=== PATIENT | male | born 2000 | race African-American/Black ===

== ENCOUNTER 2019-10-22 12:42 | Emergency (ER) | payer OTHER ==
[~2019-10-22] VITALS: Ht 182.9 cm; Wt 87.7 kg
[2019-10-22] MEDS ORDERED: ALB (12:49)
--- NOTE | 2019-10-22 13:37 | REPVR ---
PROCEDURE INFORMATION: Exam: CT Head Without Contrast Exam date and time: 10/22/2019 1:28 PM Age: 18 years old Clinical indication: Injury or trauma; Fall; Initial encounter; Blunt trauma (contusions or hematomas); Additional info: Fall injury, dizziness TECHNIQUE: Imaging protocol: Computed tomography of the head without contrast. Radiation optimization: All CT scans at this facility use at least one of these dose optimization techniques: automated exposure control; mA and/or kV adjustment per patient size (includes targeted exams where dose is matched to clinical indication); or iterative reconstruction. COMPARISON: No relevant prior studies available. FINDINGS: Brain: No acute intracranial hemorrhage, cerebral edema, or midline shift. Ventricles: No hydrocephalus. Bones/joints: No acute fracture. Sinuses: No acute sinusitis. Mastoid air cells: Visualized mastoid air cells are well aerated. Soft tissues: Unremarkable. IMPRESSION: No acute intracranial abnormality. Electronically signed by: Jacob Page On 10/22/2019 13:37:28 PM
[2019-10-22 14:01] VITALS: BP 131/68
== END 2019-10-22 14:02 | disposition home or self-care (01) ==
LOC: M ED 12:42
DX: S06.0X0A Concussion without loss of consciousness, initial encounter (principal); W07.XXXA Fall from chair, initial encounter; Y92.018 Other place in single-family (private) house as the place of occurrence of the external cause; Y93.9 Activity, unspecified; Y99.9 Unspecified external cause status; Z91.81 History of falling

== ENCOUNTER 2019-10-25 17:28 | Emergency (ER) | payer OTHER ==
[~2019-10-25] VITALS: Ht 182.9 cm; Wt 93.6 kg
[~2019-10-25 17:28] MED LIST: ALB
[2019-10-25] MEDS ORDERED: ONDANSETRON 4 MG ORAL DISINTEGRATING TAB PO ONE (18:00)
--- NOTE | 2019-10-25 18:39 | REPVR ---
PROCEDURE INFORMATION: Exam: CT Head Without Contrast Exam date and time: 10/25/2019 6:21 PM Age: 18 years old Clinical indication: Injury or trauma; Injury history: Head injury; Initial encounter; Blunt trauma (contusions or hematomas); Additional info: Head injury, increase in n/v/dizziness today TECHNIQUE: Imaging protocol: Computed tomography of the head without contrast. Radiation optimization: All CT scans at this facility use at least one of these dose optimization techniques: automated exposure control; mA and/or kV adjustment per patient size (includes targeted exams where dose is matched to clinical indication); or iterative reconstruction. COMPARISON: CT Head without contrast 10/22/2019 1:24 PM FINDINGS: Brain: No CT evidence of acute cortical infarct. No mass effect. No edema. There is no evidence of intracranial hemorrhage. Ventricles: The ventricular system is midline and appropriate in size. No hydrocephalus. Bones/joints: There is no evidence of acute fracture. Sinuses: No fluid levels. Mastoid air cells: Visualized mastoid air cells are free of acute inflammatory change. Orbits: The included orbital structures are unremarkable. Soft tissues: No large soft tissue hematoma. Please correlate clinically. IMPRESSION: No acute intracranial abnormality. Electronically signed by: Julio Ackerman On 10/25/2019 18:38:47 PM
[2019-10-25] MEDS ORDERED: IBUPROFEN 800 MG TAB PO ONE (18:45)
[2019-10-25] MEDS ORDERED: ONDA4TAB6 PO (18:46)
[2019-10-25 19:00] VITALS: BP 138/74
== END 2019-10-25 19:01 | disposition home or self-care (01) ==
LOC: M ED 17:28
DX: R11.2 Nausea with vomiting, unspecified (principal)
CPT/HCPCS: 70450; 99283; Q0162

== ENCOUNTER 2019-10-31 12:13 | Emergency (ER) | payer OTHER ==
[~2019-10-31] VITALS: Ht 182.9 cm; Wt 93.6 kg
[~2019-10-31 12:13] MED LIST changes: +ONDA4TAB6 PO
[2019-10-31] MEDS ORDERED: VENTAER INH (12:28)
[2019-10-31] MEDS ORDERED: KETOROLAC TROMETHAMINE 10 MG TAB PO ONE (13:30)
[2019-10-31] MEDS ORDERED: ONDANSETRON 4 MG ORAL DISINTEGRATING TAB PO ONE (13:30)
[2019-10-31 14:27] VITALS: BP 143/79
== END 2019-10-31 14:30 | disposition home or self-care (01) ==
LOC: M ED 12:13
DX: F07.81 Postconcussional syndrome (principal); R51 Headache; Z91.81 History of falling
CPT/HCPCS: 99283; Q0162

== ENCOUNTER 2020-02-29 01:18 | Emergency (ER) | payer OTHER ==
[~2020-02-29] VITALS: Ht 185.4 cm; Wt 97.7 kg
[~2020-02-29 01:18] MED LIST changes: +VENTAER INH
[2020-02-29] MEDS ORDERED: CETI-24 PO (01:25)
[2020-02-29] MEDS ORDERED: predniSONE 20 MG TAB PO ONE (02:00)
[2020-02-29] MEDS ORDERED: ALBUTEROL 90 MCG/ACT 8GM HFA INHALER INH ONE ×2 (02:00)
[2020-02-29] MEDS ORDERED: PRED20TA PO (02:27)
[2020-02-29] MEDS ORDERED: VENTAER INH (02:27)
[2020-02-29 02:34] VITALS: BP 131/72
== END 2020-02-29 02:37 | disposition home or self-care (01) ==
LOC: M ED 01:18
DX: J45.901 Unspecified asthma with (acute) exacerbation (principal); R09.81 Nasal congestion; Z79.51 Long term (current) use of inhaled steroids